=== PATIENT | male | born 1955 | race Hispanic/Latino ===

== ENCOUNTER 2021-09-21 08:16 | Day surgery (SDC) | payer OTHER ==
[2021-09-20 15:08] LABS: Hematocrit 42.7 % (39.6-49.0); Lymphocytes % 35.7 % (15.3-44.8); MPV 8.4 fL (7.6-11.3); RBC Red Blood Cell Count 4.28 M/uL (4.33-5.43)
[2021-09-20 15:20] LABS: Potassium 4.2 mmol/L (3.5-5.1)
--- NOTE | 2021-09-20 15:24 | RAD REPORT ---
EXAM DESCRIPTION: RAD - Chest Pa And Lat (2 Views) - 09/20/2021 2:59 pm CLINICAL HISTORY: Pre op pending hernia surgery Chest pain. COMPARISON: No comparisons FINDINGS: The lungs are clear. The heart is upper limit of normal in size. No displaced fractures. IMPRESSION: No acute or concerning finding suspected.
[2021-09-21] MEDS ORDERED: Ringers Lactate 1,000 ML IV ONE (08:34)
[2021-09-21] MEDS ORDERED: CEFAZOLIN/NS 1gm 1 GM/50 ML BAG ONE (09:45)
[2021-09-21] MEDS ORDERED: propofoL 200 MG/20 ML VIAL IV ONE (10:10)
[2021-09-21] MEDS ORDERED: ROCURONIUM 50 MG/5 ML VIAL IV ONE (10:10)
[2021-09-21] MEDS ORDERED: LIDOCAINE 2% MPF 5 ML VIAL ONE (10:10)
[2021-09-21] MEDS ORDERED: MIDAZOLAM HCL 2 MG/2 ML INJ ONE (10:10)
[2021-09-21] MEDS ORDERED: FENTANYL CITR 100 MCG/2 ML ONE (10:10)
[2021-09-21] MEDS ORDERED: ONDANSETRON 4 MG/2 ML VIAL ONE (10:11)
[2021-09-21] MEDS ORDERED: dexAMETHasone 10 MG/ML VIAL ONE (10:33)
[2021-09-21] MEDS ORDERED: KETOROLAC 30 MG/ML INJ ONE (10:55)
[2021-09-21] MEDS ORDERED: GLYCOPYRROLATE 0.2 MG/ML SYR ONE ×2 (11:06→11:15)
[2021-09-21] MEDS ORDERED: NEOSTIGMINE 1 MG/ML -5 ML ONE (11:15)
--- NOTE | 2021-09-21 11:22 | P.BOP ---
Preoperative diagnosis: left incarcerated inguinal hernia Postoperative diagnosis: same Primary procedure: Laparoscopic repair left incarcerated inguinal hernia with mesh Moving Worker: GALO MILTON (AGRONOMY PROFESSOR) Estimated blood loss: <10cc Specimen: none Findings: incarcerated omentum on left inguinal hernia Anesthesia: General Complications: None Implants: medium L 3d mesh Transferred to: Recovery Room Condition: Good
[2021-09-21] MEDS ORDERED: HYDROCODONE/APAP 7.5/325 MG TAB ONE (12:42)
--- NOTE | 2021-09-21 13:05 | EKG ---
Test Date: 2021-09-20 Test Time: 14:42:05 Block Cleaner: MOISE MEASUREMENT RESULTS: Intervals: Rate: 56 OH: 174 QRSD: 100 QT: 450 QTc: 434 [place]: P: 44 OH: 174 QRS: 18 T: 45 INTERPRETIVE STATEMENTS: Sinus bradycardia Otherwise normal ECG No previous ECG available for comparison Electronically Signed On 09-21-21 13:02:56 INDEPENDENT JEWELER by Trino Estrada
[2021-09-21 13:46] VITALS: TEMP 97; O2SAT 98
[2021-09-21 14:17] VITALS: BP 130/70
--- NOTE | 2021-09-22 01:24 | OP ---
Date of Procedure: 09/21/2021 Surgeon: Angelo Valderrama MD [employer] Operator: CORDELL White. Preoperative Diagnosis: Left incarcerated inguinal hernia. Postoperative Diagnosis: Left incarcerated inguinal hernia. Procedure: Laparoscopic repair of left incarcerated inguinal hernia with mesh. Estimated Blood Loss: Less than 10 cc. Specimen: None. Findings: Incarcerated omentum, the left inguinal hernia. Anesthesia: General and local. Complications: None. Implant: 3D mesh. Indication: This is a case of a male, who comes to us with a tender left inguinal hernia. The benef its, alternatives, and risks of left inguinal hernia repair laparoscopically versus open with mesh fu lly explained which include, but not limited to infection, bleeding, damage to adjacent structures, a nesthesia complication, recurrence, chronic pain, chronic numbness, CO, and even . He also unde rstands this, may not relieve the symptoms. He might need more than one surgical intervention. He u nderstands our intention to use mesh in that region. Pros and cons of mesh placement were discussed with the patient and he was allowed to ask questions and answered to his satisfaction and he did cons ent. Procedure In Detail: The patient was brought to the operating room, placed in supine position. Anes thesia was done without complication. Abdominal area was prepped and draped in usual sterile fashion . A time-out was called. The patient was placed position. An incision was made on the a brittnee just below the umbilicus. The anterior rectus sheath was identified, opened on the left side. T he muscle retracted laterally to expose the posterior rectus sheath. The extraperitoneal space was g ently developed with the help of blunt dissection. A Spacemaker balloon tipped trocar was placed in that area directed toward the pubis symphysis. With the camera laparoscope, we proceeded to inflate the balloon under direct visualization to create extraperitoneal space. After that, the balloon was deflated and removed . Once we had the scope once again, we placed a 5 mm trocar just at t he area of the pubis symphysis and another one custodial between the first and the second one. The pre peritoneal space was further developed by exposing the inferior epigastric vessels keeping them anter ior. Balwinder ligament was dissected laterally to the junction with the iliac veins. The dissection c ontinued inferiorly to the iliopubic tract avoiding damage to the femoral branch of the genitofemoral nerve and lateral femoral cutaneous nerve. The cord structures were carefully skeletonized. Hernia sac was identified. It looks like I had some omentum in that area. The omentum was reduced. The h ernia sac was then reduced into the peritoneum. At that moment, I proceeded to introduce a 3D mesh m edium size in the left side to the trocar site. The mesh was placed to cover direct and indirect spa ann. The mesh was secured in place lateral and superior to the iliopubic tract and inferior and medi al to the Balwinder ligament with SorbaFix fixation device. No bleeding. At that moment, I proceeded t o visualize the area, looks intact. No bleeding. We held the mesh in place as we gently deflated th e area under direct visualization. The trocars were removed. The rectus sheath was approximated wit h #1 Vicryl and the skin in subcuticular fashion with 3-0 chromic and Steri-Strips on top. Sponge co unt and instrument counts were correct. The patient tolerated the procedure well. The patient was s ent to Recovery in stable condition. Disposition: Home. Activity: As tolerated, no heavy lifting. Follow up in my office in 1 week. Call for appointment a t [phone]. Keep it dry for 48 hours, then may shower. Keep Steri-Strips intact. Cold compresses to the left inguinal region for the next 24 hours. ANNEMARIE/NATA Voice ID: [id number] Report ID: [id number]
== END 2021-09-21 13:55 | disposition home or self-care (01) ==
LOC: OR 08:16
PROVIDERS: ATTEND Surgery
PROC: 0YU64JZ Supplement Left Inguinal Region with Synthetic Substitute, Percutaneous Endoscopic Approach (ICD-10-PCS; principal; 2021-09-21 09:45)
DX: K40.30 Unilateral inguinal hernia, with obstruction, without gangrene, not specified as recurrent (principal); Z20.822 Contact with and (suspected) exposure to COVID-19
CPT/HCPCS: 93005; 85025; 80048; 36415; 71046; 49650; U0003; J2704; J2250; J3010; J1100; J2710; J0690; J7120; J2405